=== PATIENT | male | born 1950 | race Caucasian/White ===

== ENCOUNTER 2018-08-08 08:55 | Emergency (ER) | END 2018-08-08 14:42 | disposition home or self-care (01) ==

== ENCOUNTER 2019-06-27 19:16 | Emergency (ER) | payer OTHER, MEDICAID ==
[~2019-06-27] VITALS: Ht 167.6 cm; Wt 62.3 kg
[~2019-06-27 19:16] MED LIST: BEN25 PO; LEVO25TA50 PO; LORA10TA3 PO; TRIA15CR55 TOP
[2019-06-27 19:21] VITALS: BP 127/60; PULSE 68; RESP 19; Ht 167.6 cm; Wt 62.3 kg
== END 2019-06-27 21:59 | disposition home or self-care (01) ==
LOC: FTE 19:16
DX: S60.561A Insect bite (nonvenomous) of right hand, initial encounter (principal); S60.562A Insect bite (nonvenomous) of left hand, initial encounter; S30.861A Insect bite (nonvenomous) of abdominal wall, initial encounter; W57.XXXA Bitten or stung by nonvenomous insect and other nonvenomous arthropods, initial encounter; Y92.89 Other specified places as the place of occurrence of the external cause; Z87.891 Personal history of nicotine dependence
CPT/HCPCS: 99283